=== PATIENT | female | born 1970 | race Caucasian/White ===

== ENCOUNTER 2018-08-27 20:11 | Emergency (ER) | payer MEDICAID, OTHER ==
[2018-08-27 20:25] VITALS: BP 158/82
--- NOTE | 2018-08-27 20:29 | EDPHY ---
H & P Stated Complaint: ANIRUDH EAR PAIN,CONGESTIONS SINCE THURSDAY Time Seen by Provider: 08/27/18 20:27 HPI/ROS: HPI: This is a 48-year-old female who presents with Chief Complaint: ANIRUDH EAR PAIN,CONGESTIONS SINCE THURSDAY Location: Sinus, bilateral ear Quality: Congestion, pain Duration: 10 days Signs and Symptoms: no fever, no nausea, no vomiting, no diarrhea, no urinary symptoms, no chest pain, no shortness of breath, no wheezing, no cough, no sore throat, no neck stiffness, no joint pain, no swollen glands, no ear pain, no rash Timing: Worsening Severity: Moderate Context: Patient is generally healthy, no primary care provider, presents accompanied by , with complaints of green nasal discharge, bilateral maxillary sinus tenderness and pressure for the last 10 days. Today she noted bilateral ear pain. She denies fever, ear discharge, headache, neck stiffness, sore throat. Modifying Factors: [id number] cold medicines with no relief Comment: ROS: A comprehensive 10 system review of systems is otherwise negative aside from elements mentioned in the history of present illness. MEDICAL/SURGICAL/SOCIAL HISTORY: Medical history: Generally healthy. Does not take any regular medications. Currently on menses. Surgical history: Denies Social history: . Nonsmoker. Family history noncontributory. CONSTITUTIONAL: Well-developed, well-nourished female, awake and alert , no obvious distress HEENT: Atraumatic and normocephalic, PERRL, EOMI. Nares patent; green rhinorrhea; moderate nasal mucosal edema. Moderate bilateral maxillary sinus reproducible tenderness. Bilateral Tympanic membranes effusion. Oropharynx clear, no tonsillar hypertrophy, uvula midline, no exudate and moist pink mucosa. Airway patent. No lymphadenopathy. No meningismus. Cardiovascular: Normal S1/S2, tachycardia, regular rhythm, without murmur rub or gallop. PULMONARY/CHEST: Symmetrical and nontender. Clear to auscultation bilaterally. Good air movement. No accessory muscle usage. ABDOMEN: Soft, nondistended, nontender, no rebound, no guarding, no peritoneal signs, no masses or organomegaly. No CVAT. EXTREMITIES: 2/2 pulses, strength 5/5, no deformities, no clubbing, no cyanosis or edema. NEUROLOGICAL: no focal neuro deficits. GCS 15. Speech clear. SKIN: Warm and dry, no erythema. no rash. Good capillary refill. Source: Patient, Payroll Lead Exam Limitations: Language barrier (Cymro) - Personal History LMP (Females 10-55): Now Current Tetanus Diphtheria and Acellular Pertussis (TDAP): Yes - Medical/Surgical History Hx Asthma: No Hx Chronic Respiratory Disease: No Hx Diabetes: No Hx Cardiac Disease: No Hx Renal Disease: No Hx Cirrhosis: No Hx Alcoholism: No Hx HIV/AIDS: No Hx Splenectomy or Spleen Trauma: No Other PMH: DENIES - Social History Smoking Status: Never smoked Constitutional: Initial Vital Signs Temperature (C) 37.2 C 08/27/18 20:22 Heart Rate 105 H 08/27/18 20:22 Respiratory Rate 16 08/27/18 20:22 Blood Pressure 158/82 H 08/27/18 20:22 O2 Sat (%) 96 08/27/18 20:22 O2 Delivery Mode Room Air Allergies/Adverse Reactions: No Known Allergies Allergy (Unverified 08/27/18 20:22) Home Medications: Medication Instructions Recorded Amoxicillin/Clavulanate Pot 875 mg PO BID #14 tab 08/27/18 [Augmentin 875 MG TAB (*)] Fluticasone Nasal [Flonase Nasal 1 sprays NASAL DAILY #1 mdi 08/27/18 [place] (RX)] Medical Decision Making ED Course/Re-evaluation: Vital signs reviewed and show mildly elevated blood pressure and mild tachycardia. Patient has symptoms greater than 10 days; will start antibiotic for sinusitis with eustachian tube dysfunction. Given Tylenol, ibuprofen, Augmentin. Patient given a script for Augmentin and Flonase. No signs of tympanic membrane perforation/vertigo/meningitis/sepsis This patient was seen under the supervision of my primary supervising physician. I evaluated care for this patient independently. Differential Diagnosis: Differential diagnosis includes but is not limited to influenza, sinusitis, otitis media, strep pharyngitis, tonsillar abscess, meningitis. Departure - Departure Disposition: Home, Routine, Self-Care Clinical Impression: Sinusitis nasal Qualifiers: Sinusitis location: maxillary Chronicity: acute Recurrence: non-recurrent Qualified Code(s): J01.00 - Acute maxillary sinusitis, unspecified Eustachian tube dysfunction Qualifiers: Laterality: bilateral Qualified Code(s): H69.83 - Other specified disorders of Eustachian tube, bilateral Condition: Good Instructions: Sinusitis (ED), Ear Infection (ED) Additional Instructions: Take Tylenol 650 mg every 4 hours and/or Ibuprofen 600 mg every 8 hours with food as needed for pain. Apply moist heat for 30 minutes at a time on face/sinus; 2-3 times per day for the next 1-2 days. Take Antibiotic as directed. Do not skip a dose. Referrals: [facility],. [Clinic] - As per Instructions Prescriptions: Amoxicillin/Clavulanate Pot [Augmentin 875 MG TAB (*)] 875 mg PO BID #14 tab Fluticasone Nasal [Flonase Nasal [place] (RX)] 1 sprays NASAL DAILY #1 mdi
[2018-08-27] MEDS ORDERED: ACETAMINOPHEN 500 MG TAB PO ONE (20:43)
[2018-08-27] MEDS ORDERED: IBUPROFEN 600 MG TAB PO ONE (20:43)
[2018-08-27] MEDS ORDERED: AMOXICILLIN/CLAVULANATE POT 875/125 MG TAB PO ONE (20:43)
== END 2018-08-27 21:01 | disposition home or self-care (01) ==
DX: H69.83 Other specified disorders of Eustachian tube, bilateral (principal); J01.00 Acute maxillary sinusitis, unspecified